=== PATIENT | male | born 1990 | race Hispanic/Latino ===

== ENCOUNTER 2023-02-21 21:12 | Emergency (ER) | payer OTHER ==
[~2023-02-21 21:12] MED LIST: Iopamidol 370 76% 100 ML VIAL ONE
[2023-02-21 21:29] LABS: #Basophils 0.1 thou/uL (0.0-0.2); #Lymphocytes 2.4 thou/uL (1.20-3.40); #Neutrophils 17.2 thou/uL (1.40-6.50); %Basophils 0.6 % (0.0-1.0); %Eosinophils 0.2 % (0.0-10.0); %Lymphocytes 11.6 % (21.0-51.0); %Monocytes 4.7 % (0.0-10.0); %Neutrophils 82.9 % (42.0-75.0); Hematocrit 52.9 % (42.0-52.0); Hemoglobin 17.6 g/dL (14.0-18.0); Mean Corpuscular HGB CONC 33.2 g/dL (32.0-36.0); Mean Corpuscular Hemoglobin 29.9 pg (27.0-31.0); Mean Platelet Volume 8.8 fL (7.4-10.4); Platelet Count 312 10x3/uL (130-400); RBC Distribution Width 12.1 % (11.5-14.5); Red Blood Cell (RBC) Count 5.88 mill/uL (4.70-6.10); White Blood Cell (WBC) Count 20.7 10x3/uL (4.8-10.8)
[2023-02-21] MEDS ORDERED: Morphine 4 MG/ML VIAL ONE ×2 (21:33→22:33)
[2023-02-21 21:34] LABS: INR-International Normal Ratio 0.9; Prothrombin Time 12.6 sec (12.0-14.7)
[2023-02-21] MEDS ORDERED: Ondansetron PF 4 MG/2 ML Vial ONE (21:34)
[2023-02-21 21:35] LABS: PTT 22.9 sec (22.9-36.1)
[2023-02-21 21:43] LABS: ALT (SGPT) 12 U/L (8-55); AST (SGOT) 15 U/L (5-34); Albumin 4.3 g/dL (3.5-5.0); Alkaline Phosphatase 81 U/L (40-110); Anion Gap 13 mmol/L (10-20); BUN (Urea Nitrogen) 22 mg/dL (8.9-20.6); Bilirubin, Total 0.5 mg/dL (0.2-1.2); Calc. Creatinine Clearance 0 mL/min (70-130); Calcium 9.1 mg/dL (7.8-10.44); Carbon Dioxide 26 mmol/L (22-29); Chloride 104 mmol/L (98-107); Estimated GFR 86; Glucose 106 mg/dL (70-105); Potassium 4.1 mmol/L (3.5-5.1); Protein, Total 7.3 g/dL (6.0-8.3); Sodium 139 mmol/L (136-145)
[2023-02-21 21:46] LABS: Alcohol Less than 10.0 mg/dL (Less than 10)
[2023-02-21 21:48] LABS: Lipase Less than 4 U/L (8-78)
[2023-02-21] MEDS ORDERED: Sodium Chloride 0.9% 1,000 ML ONE (22:17)
[2023-02-21] MEDS ORDERED: Bacitracin 1 PK ONE (22:17)
[2023-02-21] MEDS ORDERED: Boostrix 0.5 ML (Tdap) VIAL (>/=7 yrs of age) ONE (22:17)
== END 2023-02-21 23:47 | disposition home or self-care (01) ==
LOC: NAV ERS 21:12
DX: S00.83XA Contusion of other part of head, initial encounter (principal); S06.891A Other specified intracranial injury with loss of consciousness of 30 minutes or less, initial encounter; S50.811A Abrasion of right forearm, initial encounter; S70.211A Abrasion, right hip, initial encounter; S30.810A Abrasion of lower back and pelvis, initial encounter; S80.811A Abrasion, right lower leg, initial encounter; S80.211A Abrasion, right knee, initial encounter; Z23 Encounter for immunization; F17.210 Nicotine dependence, cigarettes, uncomplicated; V89.9XXA Person injured in unspecified vehicle accident, initial encounter
CPT/HCPCS: 70450; 70486; 71260; 72125; 74177; 80053; 80307; 83605; 83690; 85025; 85610; 85730; 90471; 90715; 96374; 96375; 96376; J2270; J2405; J7050; Q9967